=== PATIENT | female | born 2000 | race Caucasian/White ===

== ENCOUNTER 2019-01-20 16:48 | Emergency (ER) | payer SELFPAY ==
[~2019-01-20] VITALS: Ht 154.9 cm; Wt 44.0 kg
[2019-01-20 17:02] VITALS: Ht 154.9 cm; Wt 44.0 kg
[2019-01-20 19:59] VITALS: BP 111/71
== END 2019-01-20 19:59 | disposition home or self-care (01) ==
LOC: ED 16:48
DX: R07.81 Pleurodynia (principal); N39.0 Urinary tract infection, site not specified
CPT/HCPCS: J1885